=== PATIENT | female | born 1995 | race Caucasian/White ===

== ENCOUNTER 2017-02-23 00:19 | Emergency (ER) | payer OTHER ==
[~2017-02-23] VITALS: Ht 157.5 cm; Wt 49.9 kg
[2017-02-23 00:35] VITALS: BP_SYST 119
[2017-02-23] MEDS ORDERED: PREDNISONE 20 MG TABLET PO ONE (01:00)
[2017-02-23] MEDS ORDERED: IPRATROPIUM/ALBUTEROL SULFATE 3 ML AMPUL.NEB INH ONE (01:00)
[2017-02-23 02:39] VITALS: BP_SYST 109
== END 2017-02-23 02:39 | disposition home or self-care (01) ==
LOC: SED 00:19
DX: J06.9 Acute upper respiratory infection, unspecified (principal); J45.901 Unspecified asthma with (acute) exacerbation
CPT/HCPCS: 94150; 94640; 99283; J7512